=== PATIENT | female | born 1955 | race Two or more races ===

== ENCOUNTER 2019-03-06 11:01 | Emergency (ER) | payer OTHER ==
[~2019-03-06] VITALS: Ht 152.4 cm; Wt 76.7 kg
[~2019-03-06 11:01] MED LIST: ALBUTEROL1.25 MG/3; AZULFIDINE500 M1; BENTONITE500 GM; BONIVA150 MG; BREO ELLIPTA 21 EACH; CLONAZEPAM1 MG; CYMBALTA60 MG; INCRUSE ELLI62.5 MCG; PROTONIX40 MG; SINTROID
[2019-03-06] MEDS ORDERED: AMOXICILLIN500 M1 (11:23)
== END 2019-03-06 14:41 | disposition home or self-care (01) ==
LOC: ER 11:01
DX: R51 Headache (principal)